=== PATIENT | female | born 1940 | race Caucasian/White ===

== ENCOUNTER 2017-01-08 23:46 | Emergency (ER) | payer OTHER ==
[~2017-01-08] VITALS: Ht 167.6 cm; Wt 113.4 kg
[2017-01-09 00:21] LABS: EOSINOPHIL (%) 2.4 % (0-5); EOSINOPHIL COUNT 0.2 K/uL (0-0.3); HEMATOCRIT 24.6 % (36.0-46.0); IMMATURE GRANULOCYTE (%) 0.3 % (0.0-0.7); LYMPHOCYTE COUNT 1.2 K/uL (1.0-2.8); MCH 29.7 PG (29.0-34.0); MCHC 30.1 G/DL (30.0-36.0); MCV 98.8 FL (83-99); MEAN PLAT.VOLUME 9.6 uM^3 (9.5-12.4); MONOCYTE (%) 8.4 % (3-12); MONOCYTE COUNT 0.6 K/uL (0-0.8); NEUTROPHIL (%) 71.8 % (45-76); PLATELET COUNT 192 K/uL (156-360); RBC DIS.WIDTH-CV 16.7 % (11.8-14.6); RBC DIS.WIDTH-SD 60.6 % (39-53); RED BLOOD COUNT 2.49 M/uL (3.80-5.20)
[2017-01-09 00:31] LABS: POINT-OF-CARE METER ID UU13113747
[2017-01-09 00:31] LABS: CHLORIDE 95 mEq/L (99-109); POTASSIUM 3.1 mEq/L (3.7-5.4); SODIUM 145 mEq/L (136-147)
[2017-01-09 00:32] LABS: MAGNESIUM 1.8 mg/dL (1.3-2.7)
[2017-01-09 00:35] LABS: ANION GAP 9 MEQ/L (2-14)
[2017-01-09 00:36] LABS: TOTAL BILIRUBIN 0.5 mg/dL (0.0-1.0)
[2017-01-09 00:37] LABS: ALKALINE PHOSPHATASE 58 IU/L (3-129); GFR ESTIMATE (CALCULATED) 36 mL/min/
[2017-01-09 00:38] LABS: UREA NITROGEN (BUN) 25 mg/dL (9-23)
[2017-01-09 00:42] LABS: TROP-I INTERPRETATION NEGATIVE; TROPONIN-I 0.01 ng/mL (0.0-0.30)
[2017-01-09 00:43] LABS: GLUCOSE 96 mg/dL (70-99)
[2017-01-09 00:45] LABS: CARBON DIOXIDE (BICARBONATE) > 40.0 mEq/L (20-31)
[2017-01-09 01:21] LABS: BASE EXCESS 22.6 mEq/L (-3 to +3); BICARBONATE 49.3 mEq/L (22-26); CARBOXY HGB 2.2 % (0-5); METHEMOGLOBIN 0.9 % (0-1.5); PCO2 71 mm Hg (35-45); PO2 62 mm Hg (80-100); pH 7.45 (7.35-7.45)
[2017-01-09 01:22] LABS: COMMENTS - BLOOD GASES C+; DEVICE NC; O2 FLOW 4 L/MIN; SITE RB; TOTAL RESP RATE 23 resp/min
[2017-01-09 04:11] VITALS: BP 122/63
== END 2017-01-09 04:13 ==
LOC: EME → EDBD 23:46 → EME 01-09 04:13
PROVIDERS: Emergency Medicine
DX: R41.0 Disorientation, unspecified (principal); R44.1 Visual hallucinations; G47.33 Obstructive sleep apnea (adult) (pediatric); I50.9 Heart failure, unspecified; E87.6 Hypokalemia; D64.9 Anemia, unspecified; J44.9 Chronic obstructive pulmonary disease, unspecified; Z99.81 Dependence on supplemental oxygen
CPT/HCPCS: 36600; 71010; 80053; 81003; 82803; 82948; 83735; 83880; 84484; 85025; 93005; 94002; 99281; 99285